=== PATIENT | male | born 1955 | race Caucasian/White ===

== ENCOUNTER → 2018-02-06 | Outpatient (CLI) | payer BC | LOC: M RAD 14:19 | DX: R53.83 Other fatigue (principal); J45.909 Unspecified asthma, uncomplicated; G47.33 Obstructive sleep apnea (adult) (pediatric) | CPT/HCPCS: 71046 ==

== ENCOUNTER → 2018-11-14 | Outpatient (CLI) | payer BC ==
[~2018-11-14] MED LIST: ALBU2TA PO; CEFP250T PO; D 50CAP PO; DILA2TAB6 PO; MUCI600T37 PO; PROBCAP14 PO; QNAS80AE NARES; RAMI1CAP24 PO; RANI1SYP PO; SING10TA32 PO
--- NOTE | 2018-11-14 15:56 | REP ---
HISTORY: Dyspnea. COMPARISON: 09/04/2018 The interstitial markings have increased somewhat diffusely compared to the prior exam, however, today's examination was obtained with less inspiratory effort compared to the prior exam. This crowds the vascularity and simulates cardiomegaly. With that exception there has been no significant change from the prior exam. Subtle discoid opacity is seen in the right lower lobe, likely discoid subsegmental atelectatic change. There is no change in the osseous structures. IMPRESSION: Limitations as described above. No evidence of acute cardiopulmonary disease, however, correlate clinically and if necessary obtain repeat exam with full inspiration on the PA view. Electronically Signed by Anuj Adames DO 11/14/2018 05:20 P
== END ==
LOC: M SMT 14:00
PROVIDERS: ATTEND Nurse Practitioner Family
DX: R06.00 Dyspnea, unspecified (principal)

== ENCOUNTER → 2019-01-15 | Outpatient (CLI) | payer BC ==
--- NOTE | 2019-01-24 14:35 | SLEEPCENT ---
DATE OF PROCEDURE: 01/15/2019 ORDERED BY: Tawny Ramirez NP Nocturnal polysomnography was performed for the titration of pressure therapy in this patient with obstructive sleep apnea syndrome. Apnea-hypopnea index 7.7. For testing, a ResMed Air Fit F20 full face mask of medium size was used, initial bilevel pressure of 18 over 14 was applied to the circuit, and the lights were extinguished. 7 hours and 59 minutes of data were reviewed. 436 minutes of sleep identified. Sleep latency was mildly prolonged at 15 minutes. Rapid eye movement (REM) latency more so at 166 minutes. Sleep architecture was good. There were two long REM cycles. Overall sleep efficiency was 92.2%. The electrocardiogram showed a sinus rhythm with an average heart rate 65 beats per minute. Electroencephalogram (EEG) showed essentially normal waveforms for awake and sleep. Respiratory events were best palliated with C-PAP at a bilevel pressure therapy of inspiratory 18 over expiratory 14. There were no breakthrough respiratory events. Some minimal limb activity was noted. One train of 30 events. Limb movement arousal index of only 1.4. IMPRESSIONS: Obstructive sleep apnea syndrome (G47.33). RECOMMENDATIONS: Nightly use of pressure therapy using a bilevel device with inspiratory pressure of 18 over expiratory pressure 14.
== END ==
LOC: M SLEEP 19:39
PROVIDERS: ATTEND Nurse Practitioner Family
DX: G47.33 Obstructive sleep apnea (adult) (pediatric) (principal)

== ENCOUNTER → 2019-07-16 | Outpatient (CLI) | payer BC ==
[~2019-07-16] MED LIST changes: +ADVA230A INH; +ARIP1TAB6 PO; +BUPR150T3 PO; +CITA20TA6 PO; +TEST200I14 PO; +VITATAB74 PO
[2019-07-16 17:17] LABS: BASO # 0.1 10^3/uL (0.0-0.2); BASO % 0.5 % (0.0-1.0); EOS # 0.2 10^3/uL (0.0-0.5); EOS % 2.3 % (0.0-3.0); HEMATOCRIT 48.6 % (42.0-52.0); HEMOGLOBIN 16.9 g/dl (13.5-17.5); LYMPH # 3.7 10^3/uL (1.5-5.0); LYMPH % 35.9 % (24.0-44.0); MEAN CORPUSCULAR HEMOGLOBIN 31.5 pg (27.0-33.0); MEAN CORPUSCULAR HGB CONC 34.8 g/dl (32.0-36.5); MEAN CORPUSCULAR VOLUME 90.5 fl (80.0-96.0); MONO # 1.2 10^3/uL (0.0-0.8); MONO % 11.6 % (0.0-5.0); NEUTROPHILS % 49.3 % (36.0-66.0); PLATELET COUNT, AUTOMATED 185 10^3/uL (150-450); RED BLOOD COUNT 5.37 10^6/uL (4.30-6.10); WHITE BLOOD COUNT 10.2 10^3/uL (4.0-10.0)
[2019-07-16 17:45] LABS: ALBUMIN 3.8 GM/DL (3.2-5.2); ALT/SGPT 31 U/L (12-78); BILIRUBIN,TOTAL 0.5 MG/DL (0.2-1.0); BLOOD UREA NITROGEN 16 MG/DL (7-18); CARBON DIOXIDE LEVEL 27 MEQ/L (21-32); CHLORIDE LEVEL 105 MEQ/L (98-107); CHOLESTEROL LEVEL 160 MG/DL (<200); CHOLESTEROL RISK RATIO 4.324 (<5); CREATININE FOR GFR 1.41 MG/DL (0.70-1.30); GLOMERULAR FILTRATION RATE 54.2 (>49); GLUCOSE, FASTING 92 MG/DL (70-100); HDL CHOLESTEROL 37 MG/DL (>40); LDH LACTATE DEHYDROGENASE 183 U/L (87-241); LDL CHOLESTEROL 103 MG/DL (<100); NON-HDL-C 123 MG/DL; POTASSIUM SERUM 4.1 MEQ/L (3.5-5.1); SODIUM LEVEL 138 MEQ/L (136-145); TOTAL PROTEIN 7.2 GM/DL (6.4-8.2); TRIGLYCERIDES LEVEL 100 MG/DL (<150)
[2019-07-19 00:06] LABS: BETA 2 MICROGLOBULIN 1.7 mg/L (0.6-2.4)
[2019-07-22 13:40] LABS: ALBUMIN 4.31 GM/DL (3.29-5.55); ALBUMIN % 59.8 % (55.8-66.1); ALPHA-1-GLOBULIN % 4.8 % (2.9-4.9); ALPHA-1-GLOBULINS 0.35 GM/DL (0.17-0.41); ALPHA-2-GLOBULINS 0.68 GM/DL (0.42-0.99); ALPHA-2-GLOBULINS % 9.4 % (7.1-11.8); BETA-1-GLOBULINS 0.53 GM/DL (0.28-0.60); BETA-1-GLOBULINS % 7.4 % (4.7-7.2); BETA-2-GLOBULINS 0.44 GM/DL (0.19-0.55); BETA-2-GLOBULINS % 6.1 % (3.2-6.5); GAMMA GLOBULIN % 12.5 % (11.1-18.8)
== END ==
LOC: M LAB 16:23
PROVIDERS: ATTEND Internal Medicine Hematology
DX: D80.3 Selective deficiency of immunoglobulin G [IgG] subclasses (principal)

== ENCOUNTER → 2020-02-19 | Outpatient (CLI) | payer BC ==
[~2020-02-19] MED LIST changes: +CLOM50TA9 PO; +ISOVUE-370 76% 100ML VIAL As Ordered ONE
--- NOTE | 2020-02-19 14:21 | REP ---
INDICATION: SPLENOMEGALY COMPARISON: None TECHNIQUE: Axial noncontrast images of the abdomen with coronal and sagittal reformations. 100 cc Isovue 370 intravenous contrast material administered without complication. This CT examination was performed using the following dose reduction techniques: Automated exposure control, adjustment of mA and/or kv according to the patient's size, and use of iterative reconstruction technique. FINDINGS: Spleen is mildly enlarged measuring 16 x 6.4 x 11.8 cm without focal splenic lesion identified. Liver demonstrates hepatosteatosis without focal hepatic lesion or hepatomegaly. Pancreas, gallbladder, bilateral adrenal glands and kidneys are essentially normal. Incidental 2 mm nonobstructing right renal calculus noted. Visualized enteric system without obstruction or acute inflammatory process. No ascites. No free air. No adenopathy. Abdominal aorta appears normal. Surrounding musculoskeletal structures are intact. IMPRESSION: Spleen is mildly enlarged but without evidence for underlying pathology by CT. No adenopathy. Hepatosteatosis. <Electronically signed by Hamlet Villanueva > 02/19/20 [id number]
[2020-02-19 14:47] LABS: BASO # 0.1 10^3/uL (0.0-0.2); BASO % 0.4 % (0.0-1.0); EOS # 0.3 10^3/uL (0.0-0.5); EOS % 2.5 % (0.0-3.0); HEMATOCRIT 45.3 % (42.0-52.0); HEMOGLOBIN 15.1 g/dl (13.5-17.5); LYMPH # 4.7 10^3/uL (1.5-5.0); LYMPH % 41.3 % (24.0-44.0); MEAN CORPUSCULAR HEMOGLOBIN 30.4 pg (27.0-33.0); MEAN CORPUSCULAR HGB CONC 33.3 g/dl (32.0-36.5); MEAN CORPUSCULAR VOLUME 91.1 fl (80.0-96.0); MONO # 0.9 10^3/uL (0.0-0.8); MONO % 8.2 % (0.0-5.0); NEUTROPHILS # 5.4 10^3/uL (1.5-8.5); NEUTROPHILS % 47.2 % (36.0-66.0); PLATELET COUNT, AUTOMATED 174 10^3/uL (150-450); RED BLOOD COUNT 4.97 10^6/uL (4.30-6.10); WHITE BLOOD COUNT 11.5 10^3/uL (4.0-10.0)
[2020-02-19 15:10] LABS: ALBUMIN 3.7 GM/DL (3.2-5.2); ALT/SGPT 32 U/L (12-78); BILIRUBIN,TOTAL 0.3 MG/DL (0.2-1.0); BLOOD UREA NITROGEN 16 MG/DL (7-18); CALCIUM LEVEL 8.8 MG/DL (8.8-10.2); CARBON DIOXIDE LEVEL 26 MEQ/L (21-32); CHLORIDE LEVEL 105 MEQ/L (98-107); CREATININE FOR GFR 1.28 MG/DL (0.70-1.30); GLOMERULAR FILTRATION RATE > 60.0 (>49); GLUCOSE, FASTING 127 MG/DL (70-100); LDH LACTATE DEHYDROGENASE 204 U/L (87-241); SODIUM LEVEL 139 MEQ/L (136-145); TOTAL PROTEIN 6.7 GM/DL (6.4-8.2)
== END ==
LOC: M RAD 13:12
PROVIDERS: ATTEND Specialist
DX: R16.1 Splenomegaly, not elsewhere classified (principal)
CPT/HCPCS: 36415; 74160; 80053; 83615; 85025; Q9967

== ENCOUNTER → 2020-04-30 | Outpatient (CLI) | payer BC ==
[~2020-04-30] MED LIST changes: -BUPR150T3 PO; +BUPR150T4 PO; -ISOVUE-370 76% 100ML VIAL As Ordered ONE
--- NOTE | 2020-04-30 11:38 | REP ---
INDICATION: OBSTRUCTIVE SLEEP APNEA (ADULT) (PEDIATRIC) COMPARISON: 11/14/2018 TECHNIQUE: PA and lateral. FINDINGS: The mediastinum and cardiac silhouette are normal. The lung morrow are clear and without acute consolidation, effusion, or pneumothorax. The skeletal structures are intact and normal. IMPRESSION: No acute cardiopulmonary process. <Electronically signed by Hamlet Villanueva > 04/30/20 [id number]
== END ==
LOC: M RAD 11:09
PROVIDERS: ATTEND Nurse Practitioner Family
DX: G47.33 Obstructive sleep apnea (adult) (pediatric) (principal)

== ENCOUNTER → 2021-03-02 | Outpatient (CLI) | payer BC ==
[~2021-03-02] MED LIST changes: +ALBU1TAB4 PO; +B-10TAB2 PO; +BUPR150T12 PO; -BUPR150T4 PO; +CETI-24 PO
--- NOTE | 2021-03-03 12:39 | SLEEPCENT ---
DATE: 03/02/2021 ORDERED BY: Tawny Ramirez Nocturnal polysomnography was performed for the titration of pressure therapy in this patient with obstructive sleep apnea syndrome. For testing, a ResMed AirTouch full-face mask of large size was used. An initial pressure of 18 inspiratory over 14 expiratory was applied to the circuit, and the lights were extinguished. There was 8 hours and 20 minutes of data reviewed. There was 434.5 minutes of sleep identified. Sleep latency was mildly prolonged at 25 minutes. REM latency was prolonged at 249 minutes. Sleep architecture did improve late in the study, and there was one long REM cycle. Overall sleep efficiency was 88%. The electrocardiogram showed a sinus rhythm with an average heart rate of 68 beats per minute. EEG showed normal waveforms for wake and sleep. Respiratory events were fully palliated with BiPAP at a pressure of 23 inspiratory over 19 expiratory. There was some minor limb activity noted in the EMG leads. Limb movement arousal index was 1.1. IMPRESSION: Obstructive sleep apnea syndrome (G47.33). RECOMMENDATION: Nightly use of bilevel pressure therapy, inspiratory 23 over expiratory 19.
== END ==
LOC: M SLEEP 20:00
PROVIDERS: ATTEND Nurse Practitioner Family
DX: G47.33 Obstructive sleep apnea (adult) (pediatric) (principal)

== ENCOUNTER → 2023-05-31 | Outpatient (REF) | payer BC, MEDICARE ==
[~2023-05-31] MED LIST changes: -ALBU2TA PO; +ALBU2TAB13 PO; +METF500T13; +MONT-5 PO; +MUCI30TA5 PO; +QNASL NARES; -SING10TA32 PO; +[UNRECOGNIZED DRUG - OTHER] PO
== END ==
LOC: M LAB REF 14:15
PROVIDERS: ATTEND Urology
DX: R31.9 Hematuria, unspecified (principal)

== ENCOUNTER → 2023-08-16 | Outpatient (CLI) | payer MEDICARE ==
[~2023-08-16] MED LIST changes: -RAMI1CAP24 PO; +RAMI5CAP60 PO
== END ==
LOC: M RAD 08:21
PROVIDERS: ATTEND Physician Assistant
DX: K80.80 Other cholelithiasis without obstruction (principal)
CPT/HCPCS: 78226; A9537

== ENCOUNTER → 2024-04-22 | Outpatient (CLI) | payer MEDICARE ==
[~2024-04-22] MED LIST changes: -ALBU1TAB4 PO; +ALBU4TAB9 PO
== END ==
LOC: M PLAIMG 08:32
PROVIDERS: ATTEND Physician Assistant
DX: S82.62XD Displaced fracture of lateral malleolus of left fibula, subsequent encounter for closed fracture with routine healing (principal)

== ENCOUNTER → 2024-12-05 | Outpatient (REF) | payer MEDICARE ==
[~2024-12-05] MED LIST changes: +CLOM50TA31 PO; -CLOM50TA9 PO
== END ==
LOC: M LAB REF 13:16
PROVIDERS: ATTEND Urology
DX: R31.9 Hematuria, unspecified (principal)